=== PATIENT | male | born 1960 | race Caucasian/White ===

== ENCOUNTER 2017-12-28 17:29 | Emergency (ER) | payer OTHER ==
[~2017-12-28] VITALS: Ht 188 cm; Wt 114.8 kg
[2017-12-28] MEDS ORDERED: SODIUM CHLORIDE 0.9% 1,000 ML IV ONE (20:00)
[2017-12-28] MEDS ORDERED: LACTULOSE 20Gm/30ML SOLN PO ONE (20:00)
[2017-12-28] MEDS ORDERED: MAGNESIUM CITRATE SOLUTION 300 ML BTL PO ONE (20:00)
[2017-12-28 23:20] VITALS: BP 113/55
== END 2017-12-28 23:33 | disposition home or self-care (01) ==
LOC: ER 17:29
DX: N20.0 Calculus of kidney (principal); K59.00 Constipation, unspecified
CPT/HCPCS: 74176; 96360; 99284; J7030